=== PATIENT | female | born 1965 | race Caucasian/White ===

== ENCOUNTER 2016-10-18 14:58 | Emergency (ER) | payer BC ==
--- NOTE | 2016-10-18 15:38 | ERPHSYRPT ---
- History of Present Illness Time Seen by Provider: 10/18/16 15:28 Historian: patient Exam Limitations: no limitations Patient Subjective Stated Complaint: pt states she was walking at at employee appreciation day at work and developed a sudden onset of chest pain. pt denies chest pain at this time. Triage Nursing Assessment: pt flushed, warm, dry. lung sounds clear and equal. hx of quad. bypass. Physician History: The patient is a 51-year-old female with a friend complaining of sharp left- sided chest pain that began while she was doing an exercise course at her place of employment this afternoon. The chest pain lasted 10 minutes and subsided after she rested and went inside in the air conditioning. She was not short of breath. She was not nauseated. This chest pain has occurred intermittently for the last several months when she has been exerting herself. She had a CABG 4 vessel 6 years ago. She has not had an MO. Her past medical history is also significant for high cholesterol, diabetes, and hypertension. She is currently feeling fine without chest pain. Timing/Duration: today, other (10 min) Activities at Onset: activity Quality: sharpness Location: substernal Chest Pain Radiation: no radiation Severity of Pain-Max: moderate Severity of Pain-Current: none Modifying Factors: Improves With: rest, aspirin Associated Symptoms: denies symptoms, No nausea, No vomiting Prior Chest Pain/Cardiac Workup: angina, cardiac cath, echocardiography Nitro Today/Relief: no nitro taken today Aspirin Treatment Today: 81 mg x 1 Allergies/Adverse Reactions: No Known Drug Allergies Allergy (Unverified 10/18/16 15:13) Home Medications: Aspirin 81 mg PO DAILY 10/18/16 [History] Atorvastatin Calcium [Lipitor] 10 mg PO DAILY 10/18/16 [History] Losartan Potassium 50 mg [Cozaar 50 MG] 50 mg PO DAILY 10/18/16 [History] Metformin HCl 500 mg [Glucophage 500 MG] 500 mg PO BID 10/18/16 [History] Hx Tetanus, Diphtheria Vaccination/Date Given: Yes (up to date) Hx Influenza Vaccination/Date Given: Yes Hx Pneumococcal Vaccination/Date Given: No Immunizations Up to Date: Yes - Review of Systems Constitutional: No Fever, No Chills Eyes: No Symptoms Ears, Nose, & Throat: No Symptoms Respiratory: No Cough, No Dyspnea Cardiac: Chest Pain, No Edema, No Syncope Abdominal/Gastrointestinal: No Abdominal Pain, No Nausea, No Vomiting, No Diarrhea Genitourinary Symptoms: No Dysuria Musculoskeletal: No Symptoms Skin: No Rash Neurological: No Dizziness, No Focal Weakness, No Sensory Changes Psychological: No Symptoms Endocrine: No Symptoms Hematologic/Lymphatic: No Symptoms Immunological/Allergic: No Symptoms All Other Systems: Reviewed and Negative - Past Medical History Pertinent Past Medical History: Yes Cardiac History: Coronary Artery Disease, High Cholesterol, Hypertension Endocrine Medical History: Diabetes Type II - Past Surgical History Past Surgical History: Yes Cardiac: CABG Gastrointestinal: Appendectomy, Cholecystectomy Female Surgical History: Hysterectomy, Section, Other - Social History Smoking Status: Never smoker Exposure to second hand smoke: No Drug Use: none Patient Lives Alone: Yes - Female History Hx Last Menstrual Period: hyster - Nursing Vital Signs Temperature: 98.4 F Temperature Source: Oral Pulse Rate: 87 Respiratory Rate: 20 Pain Intensity: 0 - Physical Exam General Appearance: no apparent distress, alert Eye Exam: PERRL/EOMI, eyes nml inspection Ears, Nose, Throat Exam: normal ENT inspection, moist mucous membranes Neck Exam: normal inspection, non-tender, supple, full range of motion Respiratory Exam: normal breath sounds, lungs clear, No respiratory distress Cardiovascular Exam: regular rate/rhythm, normal heart sounds Gastrointestinal/Abdomen Exam: soft, No tenderness, No mass Pelvic Exam: not done Rectal Exam: not done Back Exam: normal inspection, No CVA tenderness, No vertebral tenderness Extremity Exam: normal inspection, normal range of motion Neurologic Exam: alert, oriented x 3, cooperative, normal mood/affect, sensation nml, No motor deficits Skin Exam: normal color, warm, dry SpO2 Interpretation: normal SpO2: 95 Oxygen Delivery: Room Air - Course EKG Interpreted by Me: Sinus Rhythm, NORMAL AXIS, NORMAL INTERVALS, NORMAL QRS, NORMAL ST-T - Radiology Exams Chest X-ray Interpretation: Teleradiologist Report, Negative (per Dr Velasquez.) Ordered Tests: Active Orders 24 hr Category Date Time Status Sheep Clipper STAT Care 10/18/16 15:18 Active EKG-ER Only STAT Care 10/18/16 15:17 Active IV Insertion STAT Care 10/18/16 15:30 Active CHEST 2 VIEWS (PA AND LAT) Stat Exams 10/18/16 15:42 Completed CBC W DIFF Stat Lab 10/18/16 15:45 Completed CMP Stat Lab 10/18/16 15:45 Completed TROPONIN Stat Lab 10/18/16 15:45 Completed Lab/Rad Data: Laboratory Result Diagrams 10/18/16 15:45 10/18/16 15:45 Laboratory Results 10/18/16 10/18/16 Range/Units 15:45 15:45 WBC 7.5 (4.0-10.5) K/mm3 RBC 4.74 (4.1-5.4) M/mm3 Hgb 13.6 (12.0-16.0) gm/dl Hct 41.1 (35-47) % MCV 86.7 (78-100) fl MCH 28.7 (26-32) pg MCHC 33.1 (32-36) g/dl RDW 12.7 (11.5-14.0) % Plt Count 274 (150-450) K/mm3 MPV 10.9 H (6-9.5) fl Gran % 63.5 (36.0-66.0) % Lymphocytes % 26.7 (24.0-44.0) % Monocytes % 7.3 (0.0-12.0) % Eosinophils % 2.1 (0.00-5.0) % Basophils % 0.4 (0.0-0.4) % Basophils # 0.03 (0-0.4) Sodium 144 (136-145) mEq/L Potassium 3.5 (3.5-5.1) mEq/L Chloride 108 H (98-107) mEq/L Carbon Dioxide 23.9 (21-32) mEq/L Anion Gap 15.9 H (5-15) MEQ/L BUN 17 (9-20) mg/dL Creatinine 0.75 (0.55-1.30) mg/dl Estimated GFR > 60 ML/MIN Glucose 145 H (70-110) MG/DL Calcium 9.4 (8.5-10.1) mg/dL Total Bilirubin 1.3 H (0.2-1.0) mg/dL AST 18 (15-37) U/L ALT 27 (12-78) U/L Alkaline Phosphatase 97 (46-116) U/L Troponin I < 0.017 (0.000-0.056) ng/ml Serum Total Protein 7.3 (6.4-8.2) gm/dL Albumin 3.9 (3.4-5.0) g/dL - Departure Time of Disposition: 17:27 Departure Disposition: Home Clinical Impression: Angina pectoris Condition: Stable Critical Care Time: No Referrals: Ernestine Pickard TOOL COORDINATOR [Primary Care Provider] - Additional Instructions: You have been having episodes of angina. Today it happened when you were under exertion. You are now chest pain-free. You have been given a prescription for nitroglycerin 0.4 mg to be taken on your tongue every 5 minutes for up to 3 times as needed for chest pain. Please call your family preservation caseworker tomorrow and set up an appointment in the near future. Prescriptions: Nitroglycerin [Nitrostat] 0.4 mg SL Q5MIN PRN MR X 3 PRN #25 tab.subl PRN Reason: Pain
[2016-10-18 15:53] LABS: BASOPHIL % 0.4 % (0.0-0.4); Eosinophil % 2.1 % (0.00-5.0); Granulocytes % 63.5 % (36.0-66.0); Lymphocytes % 26.7 % (24.0-44.0); Mean Cell Volume 86.7 fl (78-100); Mean Corpuscular Hemoglobin 28.7 pg (26-32); Mean Platelet Volume 10.9 fl (6-9.5); Monocytes % 7.3 % (0.0-12.0); Platelet Count 274 K/mm3 (150-450); Red Blood Count 4.74 M/mm3 (4.1-5.4); Red Cell Distribution Width 12.7 % (11.5-14.0); White Blood Count 7.5 K/mm3 (4.0-10.5)
--- NOTE | 2016-10-18 16:24 | XRAY ---
Indication: Chest pain. Comparison: October 14, 2010. PA/lateral chest demonstrates interval CABG surgery. Heart is not enlarged. Vascularity normal. Lungs inflated and clear. Bony thorax intact. Impression: Nonacute chest with previous CABG surgery.
[2016-10-18 16:29] LABS: ALBUMIN 3.9 g/dL (3.4-5.0); ALKALINE PHOSPHATASE 97 U/L (46-116); ANION GAP 15.9 MEQ/L (5-15); BILIRUBIN,TOTAL 1.3 mg/dL (0.2-1.0); BLOOD UREA NITROGEN 17 mg/dL (9-20); CHLORIDE 108 mEq/L (98-107); Carbon Dioxide 23.9 mEq/L (21-32); Glucose 145 MG/DL (70-110); Potassium 3.5 mEq/L (3.5-5.1); SGOT/AST 18 U/L (15-37); SGPT/ALT 27 U/L (12-78); SODIUM 144 mEq/L (136-145); TROPONIN < 0.017 ng/ml (0.000-0.056); Total Protein 7.3 gm/dL (6.4-8.2)
[2016-10-18 17:52] VITALS: BP 117/60; PULSE 67; O2SAT 98
== END 2016-10-18 17:51 | disposition home or self-care (01) ==
LOC: ED 14:58
DX: I20.9 Angina pectoris, unspecified (principal); R07.89 Other chest pain; Z95.1 Presence of aortocoronary bypass graft; I10 Essential (primary) hypertension; E11.9 Type 2 diabetes mellitus without complications; I25.10 Atherosclerotic heart disease of native coronary artery without angina pectoris; E78.00 Pure hypercholesterolemia, unspecified; Z79.84 Long term (current) use of oral hypoglycemic drugs; Z79.899 Other long term (current) drug therapy
CPT/HCPCS: 36000; 36415; 71020; 80053; 84484; 85025; 93005; 93041; 99283; 99284

== ENCOUNTER 2017-05-26 06:20 | Emergency (ER) | payer BC ==
[2017-05-26 06:40] VITALS: BP 125/74; PULSE 82; O2SAT 97
--- NOTE | 2017-05-26 06:42 | ERPHSYRPT ---
- History of Present Illness Time Seen by Provider: 05/26/17 06:42 Source: patient Exam Limitations: no limitations Patient Subjective Stated Complaint: headache since yesterday.. productive cough. denies fever. denies N/V/D. denies swelling in legs. states heaad hurts with coughing. never has had migraines. sorethroat. Triage Nursing Assessment: headache since yesterday.. productive cough. denies fever. denies N/V/D. lungs clear bilaterally. denies swelling in legs. states heaad hurts with coughing. never has had migraines. sorethroat. Physician History: headache since yesterday.. productive cough. denies fever. denies N/V/D. denies swelling in legs. states heaad hurts with coughing. never has had migraines. sorethroat. Timing/Duration: yesterday Severity: moderate Associated Symptoms: cough, fever, headaches Allergies/Adverse Reactions: No Known Drug Allergies Allergy (Unverified 10/18/16 15:13) Home Medications: Aspirin 81 mg PO DAILY 10/18/16 [History] Atorvastatin Calcium [Lipitor] 10 mg PO DAILY 10/18/16 [History] Losartan Potassium 50 mg [Cozaar 50 MG] 50 mg PO DAILY 10/18/16 [History] Metformin HCl 500 mg [Glucophage 500 MG] 500 mg PO BID 10/18/16 [History] Hx Tetanus, Diphtheria Vaccination/Date Given: Yes (up to date) Hx Influenza Vaccination/Date Given: Yes (april) Hx Pneumococcal Vaccination/Date Given: No - Review of Systems Constitutional: Fever, Chills Eyes: No Symptoms Ears, Nose, & Throat: Throat Pain Respiratory: Cough, No Dyspnea Cardiac: No Chest Pain, No Edema, No Syncope Abdominal/Gastrointestinal: No Abdominal Pain, No Nausea, No Vomiting, No Diarrhea Genitourinary Symptoms: No Dysuria Musculoskeletal: No Back Pain, No Neck Pain Skin: No Rash Neurological: No Dizziness, No Focal Weakness, No Sensory Changes Psychological: No Symptoms Endocrine: No Symptoms All Other Systems: Reviewed and Negative - Past Medical History Pertinent Past Medical History: Yes Cardiac History: Coronary Artery Disease, High Cholesterol, Hypertension Endocrine Medical History: Diabetes Type II - Past Surgical History Past Surgical History: Yes Cardiac: CABG Gastrointestinal: Appendectomy, Cholecystectomy Female Surgical History: Hysterectomy, Section, Other - Social History Smoking Status: Never smoker Exposure to second hand smoke: No Drug Use: none Patient Lives Alone: No - Female History Hx Now: No - Nursing Vital Signs Nursing Vital Signs: Initial Vital Signs Temperature 98.6 F 05/26/17 06:26 Pulse Rate 82 05/26/17 06:26 Respiratory Rate 20 05/26/17 06:26 Blood Pressure 125/74 05/26/17 06:26 O2 Sat by Pulse Oximetry 97 05/26/17 06:26 Pain Scale Pain Intensity 7 - Physical Exam General Appearance: mild distress Eye Exam: PERRL/EOMI Ears, Nose, Throat Exam: normal ENT inspection Neck Exam: normal inspection Respiratory Exam: rhonchi Cardiovascular Exam: regular rate/rhythm Gastrointestinal/Abdomen Exam: soft Neurologic Exam: alert, oriented x 3 SpO2: 97 Oxygen Delivery: Room Air - Course Nursing assessment & vital signs reviewed: Yes Ordered Tests: Medication Summary Discontinued Medications Generic Name Dose Route Start Last Admin Trade Name Brenda PRN Reason Stop Dose Admin Ketorolac Tromethamine 60 mg 05/26/17 06:45 05/26/17 06:48 Toradol 30 Mg Injection IM 05/26/17 06:46 60 mg STAT ONE Administration Ketorolac Tromethamine Confirm 05/26/17 06:47 Toradol 30 Mg Injection Administered 05/26/17 06:48 Dose 60 mg .ROUTE .STK-MED ONE - Progress Progress: unchanged Counseled pt/family regarding: diagnosis, need for follow-up - Departure Time of Disposition: 06:50 Departure Disposition: Home Clinical Impression: Influenza A Pharyngitis Qualifiers: Pharyngitis/tonsillitis etiology: other specified organisms Qualified Code(s): J02.8 - Acute pharyngitis due to other specified organisms Condition: Stable Critical Care Time: No Referrals: SETPHAN MAYO [Primary Care Provider] - Instructions: Pharyngitis/Tonsillopharyngitis -- Adult, Headache Additional Instructions: UPPER RESPIRATORY INFECTIONS 1. The signs and symptoms of a cold may last up to 10 days. These illnesses are due to viruses which are not treatable with antibiotics. 2. The following suggestions can aid in recovery and to minimize symptoms: A. Increase fluid intake. B. Acetaminophen or Ibuprofen as directed. C. Avoid smoking environments as this will increase the risk of developing pneumonia. D. For children, may use a cool mist vaporizer in the child's room. 3. Contact your Family Physician if you note: A. Persisten fever >103 for more than 3 days B. Breathing difficulty C. Productive cough of yellow/green sputum D. Illness greater than 7 days E. Persistent vomiting F. Stiff neck VIRAL ILLNESS 1. Rest at home and take any prescribed medications as directed or until gone. 2. Offer plenty of fluids as tolerated. 3. Acetaminophen or Ibuprofen as directed. 4. Be sure to follow up with your family physician or return to the emergency department if symptoms change or become worse. Forms: Work/School Release Form Prescriptions: Amoxicillin 500 mg PO TID #30 tablet Guaifenesin/Codeine Phos [Cheratussin AC Syrup] 5 ml PO Q6H #150 liquid
[2017-05-26] MEDS ORDERED: TORAdol 30 mg Injection IM ONE (06:45)
[2017-05-26] MEDS ORDERED: TORAdol 30 mg Injection ONE (06:47)
== END 2017-05-26 07:15 | disposition home or self-care (01) ==
LOC: ED 06:20
DX: J02.8 Acute pharyngitis due to other specified organisms (principal); J11.1 Influenza due to unidentified influenza virus with other respiratory manifestations; R51 Headache
CPT/HCPCS: 96372; 99284; J1885

== ENCOUNTER 2018-03-01 17:59 | Emergency (ER) | payer BC ==
--- NOTE | 2018-03-01 18:02 | ERPHSYRPT ---
- History of Present Illness Time Seen by Provider: 03/01/18 18:02 Historian: patient, EMS Exam Limitations: no limitations Physician History: 52 y/o white female with h/o htn, and cadz with 4 vessel cabg in past, presents with sharp, short lived central substernal chest pain. pt was bending over at work. nearly resolved at work. 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 ems brought pt into ED. pts cp now only mild and only present with deep inspiration. pt had h/o panic attacks. pt denies any current new stressors. pt denies soa, denies abd pain. ems gave pt asa travel pta. no ntg given to or taken by patient. Timing/Duration: today Activities at Onset: activity Quality: sharpness Location: substernal Chest Pain Radiation: no radiation Severity of Pain-Max: mild Severity of Pain-Current: none Associated Symptoms: denies symptoms, No nausea, No vomiting, No palpitations, No abdominal pain, No shortness of breath, No cough, No hurts to breathe, No diaphoresis, No chills, No fatigue, No weakness, No syncope, No headache, No dizziness Prior Chest Pain/Cardiac Workup: cardiac cath, echocardiography, heart attack Nitro Today/Relief: no nitro taken today Aspirin Treatment Today: 81 mg x 4, provided by EMS Allergies/Adverse Reactions: No Known Drug Allergies Allergy (Verified 03/01/18 18:21) Home Medications: Aspirin 81 mg PO DAILY 10/18/16 [History] Losartan Potassium 50 mg [Cozaar 50 MG] 50 mg PO DAILY 10/18/16 [History] Metformin HCl 500 mg [Glucophage 500 MG] 1,000 mg PO BID 10/18/16 [History ] Rosuvastatin Calcium 5 mg PO DAILY 03/01/18 [History] Hx Tetanus, Diphtheria Vaccination/Date Given: Yes (up to ) Hx Influenza Vaccination/Date Given: Yes (april) Hx Pneumococcal Vaccination/Date Given: No - Review of Systems Constitutional: No Symptoms, No Fever, No Chills Eyes: No Symptoms, No Discharge, No Eye Pain Ears, Nose, & Throat: No Symptoms, No Ear Pain, No Ear Discharge Respiratory: No Symptoms, No Cough, No Dyspnea, No Stridor, No Wheezing Cardiac: Chest Pain (mild and resolved upon arrival into ED), No Palpitations, No Syncope Abdominal/Gastrointestinal: No Symptoms, No Abdominal Pain, No Nausea, No Vomiting, No Diarrhea Genitourinary Symptoms: No Symptoms, No Dysuria, No Frequency, No Hematuria Musculoskeletal: No Symptoms, No Back Pain, No Neck Pain, No Fall, No Injury Skin: No Symptoms Neurological: No Symptoms Psychological: No Symptoms, No Alcohol Abuse, No Drug Abuse, No Anxiety Endocrine: No Symptoms, No Polyuria, No Polydipsia Hematologic/Lymphatic: No Symptoms Immunological/Allergic: No Symptoms All Other Systems: Reviewed and Negative - Past Medical History Pertinent Past Medical History: Yes Neurological History: No Pertinent History ENT History: No Pertinent History Cardiac History: No Pertinent History, Coronary Artery Disease, High Cholesterol , Hypertension Respiratory History: No Pertinent History Endocrine Medical History: Diabetes Type II Musculoskeletal History: No Pertinent History GI Medical History: No Pertinent History History: No Pertinent History Psycho-Social History: No Pertinent History Female Reproductive Disorders: No Pertinent History - Past Surgical History Past Surgical History: Yes Cardiac: CABG Gastrointestinal: Appendectomy, Cholecystectomy Female Surgical History: Hysterectomy, Section, Other - Social History Smoking Status: Never smoker Exposure to second hand smoke: No Drug Use: none Patient Lives Alone: No - Nursing Vital Signs Nursing Vital Signs: Initial Vital Signs Temperature 98.5 F 03/01/18 18:00 Pulse Rate 70 03/01/18 18:00 Blood Pressure 104/64 03/01/18 18:00 O2 Sat by Pulse Oximetry 96 03/01/18 18:00 Pain Scale Pain Intensity 0 - Physical Exam General Appearance: no apparent distress, alert, anxiety Eye Exam: PERRL/EOMI, eyes nml inspection Ears, Nose, Throat Exam: normal ENT inspection, TMs normal Neck Exam: normal inspection, non-tender, supple, full range of motion Respiratory Exam: normal breath sounds, chest tenderness, lungs clear, No respiratory distress, No airway intact, No accessory muscle use, No rhonchi, No wheezing, No stridor Cardiovascular Exam: regular rate/rhythm, normal heart sounds, normal peripheral pulses Gastrointestinal/Abdomen Exam: soft, normal bowel sounds, No tenderness, No guarding, No rebound Pelvic Exam: not done Rectal Exam: not done Back Exam: normal inspection, normal range of motion, No CVA tenderness, No vertebral tenderness Extremity Exam: normal inspection, normal range of motion, pelvis stable Neurologic Exam: alert, oriented x 3, cooperative, sports equipment racker II-XII nml as tested Skin Exam: normal color, warm, dry Lymphatic Exam: No adenopathy SpO2 Interpretation: normal Oxygen Delivery: Room Air - Course Nursing assessment & vital signs reviewed: Yes EKG Interpreted by Me: RATE (68), NORMAL AXIS, NORMAL INTERVALS, NORMAL QRS (no changes compared to EKG date 10/18/16), Non-specific ST Changes Ordered Tests: Active Orders 24 hr Category Date Time Status Automobile Repair Service Estimator STAT Care 03/01/18 18:12 Active EKG-ER Only STAT Care 03/01/18 18:10 Active IV Insertion STAT Care 03/01/18 18:10 Active CHEST 1 VIEW (PORTABLE) Stat Exams 03/01/18 18:11 Taken CBC W DIFF Stat Lab 03/01/18 18:27 Completed CMP Stat Lab 03/01/18 18:27 Completed NT PRO BNP Stat Lab 03/01/18 18:27 Completed PROTIME WITH INR Stat Lab 03/01/18 18:27 Completed TROPONIN Q3H Lab 03/01/18 18:27 Completed TROPONIN Q3H Lab 03/01/18 21:15 Ordered TROPONIN Q3H Lab 03/02/18 00:15 Ordered TROPONIN Q3H Lab 03/02/18 03:15 Ordered TROPONIN Q3H Lab 03/02/18 06:15 Ordered Lab/Rad Data: Laboratory Result Diagrams 03/01/18 18:27 03/01/18 18:27 Laboratory Results 03/01/18 03/01/18 03/01/18 Range/Units 18:27 18:27 18:27 WBC (4.0-10.5) K/mm3 RBC (4.1-5.4) M/mm3 Hgb (12.0-16.0) gm/dl Hct (35-47) % MCV (78-100) fl MCH (26-32) pg MCHC (32-36) g/dl RDW (11.5-14.0) % Plt Count (150-450) K/mm3 MPV (6-9.5) fl Gran % (36.0-66.0) % Eos # (Auto) (0-0.5) Absolute Lymphs (auto) (1.0-4.6) Absolute Monos (auto) (0.0-1.3) Lymphocytes % (24.0-44.0) % Monocytes % (0.0-12.0) % Eosinophils % (0.00-5.0) % Basophils % (0.0-0.4) % Absolute Granulocytes (1.4-6.9) Basophils # (0-0.4) PT 11.5 (9.95-12.35) SECONDS INR 0.99 (0.8-3.0) Sodium 141 (137-145) mmol/L Potassium 3.5 (3.5-5.1) mmol/L Chloride 109 H (98-107) mmol/L Carbon Dioxide 23 (22-30) mmol/L Anion Gap 13.0 (5-15) MEQ/L BUN 14 (7-17) mg/dL Creatinine 0.52 (0.52-1.04) mg/dL Estimated GFR > 60.0 ML/MIN Glucose 143 H (74-106) mg/dL Calcium 8.8 (8.4-10.2) mg/dL Total Bilirubin 1.20 (0.2-1.3) mg/dL AST 14 (14-36) U/L ALT 21 (0-35) U/L Alkaline Phosphatase 77 (38-126) U/L Troponin I < 0.012 (0.000-0.034) ng/mL NT-Pro-B Natriuret Pep 96.7 (0-900) pg/mL Serum Total Protein 6.1 L (6.3-8.2) g/dL Albumin 3.8 (3.5-5.0) g/dL 03/01/18 Range/Units 18:27 WBC 6.6 (4.0-10.5) K/mm3 RBC 4.37 (4.1-5.4) M/mm3 Hgb 13.0 (12.0-16.0) gm/dl Hct 38.6 (35-47) % MCV 88.3 (78-100) fl MCH 29.7 (26-32) pg MCHC 33.7 (32-36) g/dl RDW 12.8 (11.5-14.0) % Plt Count 252 (150-450) K/mm3 MPV 10.5 H (6-9.5) fl Gran % 63.1 (36.0-66.0) % Eos # (Auto) 0.15 (0-0.5) Absolute Lymphs (auto) 1.84 (1.0-4.6) Absolute Monos (auto) 0.44 (0.0-1.3) Lymphocytes % 27.8 (24.0-44.0) % Monocytes % 6.6 (0.0-12.0) % Eosinophils % 2.3 (0.00-5.0) % Basophils % 0.2 (0.0-0.4) % Absolute Granulocytes 4.19 (1.4-6.9) Basophils # 0.01 (0-0.4) PT (9.95-12.35) SECONDS INR (0.8-3.0) Sodium (137-145) mmol/L Potassium (3.5-5.1) mmol/L Chloride (98-107) mmol/L Carbon Dioxide (22-30) mmol/L Anion Gap (5-15) MEQ/L BUN (7-17) mg/dL Creatinine (0.52-1.04) mg/dL Estimated GFR ML/MIN Glucose (74-106) mg/dL Calcium (8.4-10.2) mg/dL Total Bilirubin (0.2-1.3) mg/dL AST (14-36) U/L ALT (0-35) U/L Alkaline Phosphatase (38-126) U/L Troponin I (0.000-0.034) ng/mL NT-Pro-B Natriuret Pep (0-900) pg/mL Serum Total Protein (6.3-8.2) g/dL Albumin (3.5-5.0) g/dL - Progress Progress: improved, re-examined Air Movement: good Progress Note: 03/01/18 19:40 pt cp resolved. cxr- mild cardiomegaly; no acute process Blood Culture(s) Obtained: No Antibiotics given: No Counseled pt/family regarding: lab results, diagnosis, need for follow-up, rad results - Departure Time of Disposition: 19:41 Departure Disposition: Home Clinical Impression: Chest pain Condition: Stable Critical Care Time: No Referrals: STEPHAN MAYO [Primary Care Provider] - Additional Instructions: take your medications as prescribed. follow up with primary doctor and energy control officer for further management
[2018-03-01 18:34] LABS: BASOPHIL % 0.2 % (0.0-0.4); Basophil (Absolute #) 0.01 (0-0.4); Eosinophil % 2.3 % (0.00-5.0); Eosinophil (Absolute #) 0.15 (0-0.5); Granulocyte Absolute (ANC) 4.19 (1.4-6.9); Granulocytes % 63.1 % (36.0-66.0); Hematocrit 38.6 % (35-47); Lymphocyte (Absolute #) 1.84 (1.0-4.6); Lymphocytes % 27.8 % (24.0-44.0); Mean Cell Volume 88.3 fl (78-100); Mean Corpuscular Hemoglobin 29.7 pg (26-32); Mean Corpuscular Hgb Concent. 33.7 g/dl (32-36); Mean Platelet Volume 10.5 fl (6-9.5); Monocyte (Absolute #) 0.44 (0.0-1.3); Monocytes % 6.6 % (0.0-12.0); Platelet Count 252 K/mm3 (150-450); Red Blood Count 4.37 M/mm3 (4.1-5.4); Red Cell Distribution Width 12.8 % (11.5-14.0); White Blood Count 6.6 K/mm3 (4.0-10.5)
[2018-03-01 18:46] LABS: INR 0.99 (0.8-3.0)
[2018-03-01 18:58] LABS: ALBUMIN 3.8 g/dL (3.5-5.0); ALKALINE PHOSPHATASE 77 U/L (38-126); BLOOD UREA NITROGEN 14 mg/dL (7-17); CHLORIDE 109 mmol/L (98-107); Calcium 8.8 mg/dL (8.4-10.2); Carbon Dioxide 23 mmol/L (22-30); Creatinine 1 0.52 mg/dL (0.52-1.04); Glucose 143 mg/dL (74-106); NT PRO BNP 96.7 pg/mL (0-900); Potassium 3.5 mmol/L (3.5-5.1); SGOT/AST 14 U/L (14-36); SGPT/ALT 21 U/L (0-35); SODIUM 141 mmol/L (137-145); Total Protein 6.1 g/dL (6.3-8.2)
[2018-03-01 19:45] VITALS: BP 117/66; PULSE 69; O2SAT 97
--- NOTE | 2018-03-01 22:15 | XRAY ---
Indication: Chest pain. Comparison: October 18, 2016. Portable apical lordotic chest again demonstrates CABG surgery. Heart is not enlarged. Lungs clear. Bony thorax intact again with minimal degenerative changes. Impression: Stable nonacute chest with chronic features.
== END 2018-03-01 19:54 | disposition home or self-care (01) ==
LOC: ED 17:59
DX: R07.9 Chest pain, unspecified (principal); R42 Dizziness and giddiness; E11.9 Type 2 diabetes mellitus without complications; Z95.1 Presence of aortocoronary bypass graft; Z86.79 Personal history of other diseases of the circulatory system; Z79.82 Long term (current) use of aspirin; Z79.899 Other long term (current) drug therapy; Z79.84 Long term (current) use of oral hypoglycemic drugs
CPT/HCPCS: 36000; 36415; 71045; 80053; 83880; 84484; 85025; 85610; 93005; 93041; 99284

== ENCOUNTER 2020-12-13 21:05 | Emergency (ER) | payer BC ==
[2020-12-13 21:27] VITALS: O2SAT 97
[2020-12-13] MEDS ORDERED: SUBLIMAZE 100 MCG/2 ML IV ONE (21:27)
[2020-12-13] MEDS ORDERED: Sodium Chloride 0.9% 1000 ML 1,000 ML IV SCH (21:30)
[2020-12-13] MEDS ORDERED: SUBLIMAZE 100 MCG/2 ML ONE (21:44)
[2020-12-13] MEDS ORDERED: Sodium Chloride 0.9% 1000 ML 1,000 ML ONE (21:45)
[2020-12-13 21:54] LABS: Absolute Neutrophil Ct (ANC) 3.75 (1.4-6.9); BASOPHIL % 0.4 % (0.0-0.4); Basophil (Absolute #) 0.03 (0-0.4); Eosinophil % 2.4 % (0.00-5.0); Eosinophil (Absolute #) 0.17 (0-0.5); Hematocrit 47.2 % (35-47); Hemoglobin 15.6 gm/dl (12.0-16.0); Lymphocyte (Absolute #) 2.67 (1.0-4.6); Lymphocytes % 37.1 % (24.0-44.0); Mean Cell Volume 84.9 fl (78-100); Mean Corpuscular Hemoglobin 28.1 pg (26-32); Mean Corpuscular Hgb Concent. 33.1 g/dl (32-36); Monocyte (Absolute #) 0.57 (0.0-1.3); Monocytes % 7.9 % (0.0-12.0); Neutrophil % 52.2 % (36.0-66.0); Platelet Count 270 K/mm3 (150-450); Red Blood Count 5.56 M/mm3 (4.1-5.4); Red Cell Distribution Width 12.8 % (11.5-14.0); White Blood Count 7.2 K/mm3 (4.0-10.5)
[2020-12-13 22:05] LABS: ALBUMIN 4.7 g/dL (3.5-5.0); ALKALINE PHOSPHATASE 114 U/L (38-126); AMYLASE 50 U/L (30-110); ANION GAP 15.3 MEQ/L (5-15); BLOOD UREA NITROGEN 12 mg/dL (7-17); CHLORIDE 106 mmol/L (98-107); Calcium 9.5 mg/dL (8.4-10.2); Carbon Dioxide 22 mmol/L (22-30); Creatinine 1 0.56 mg/dL (0.52-1.04); EST GLOMERULAR FILTRATION RATE > 60.0 ML/MIN; Glucose 165 mg/dL (74-106); LIPASE 62 U/L (23-300); MAGNESIUM 1.8 mg/dL (1.6-2.3); NT PRO BNP 36.1 pg/mL (0-900); Potassium 3.7 mmol/L (3.5-5.1); SGOT/AST 23 U/L (14-36); SGPT/ALT 29 U/L (0-35); SODIUM 140 mmol/L (137-145); Total Protein 7.8 g/dL (6.3-8.2)
--- NOTE | 2020-12-13 22:17 | ERPHSYRPT ---
- History of Present Illness Time Seen by Provider: 12/13/20 21:35 Historian: patient Exam Limitations: no limitations Patient Subjective Stated Complaint: Pt c/o pain to back and is coming around to the front of upper abd area Triage Nursing Assessment: pt c/o pain to mid back which is coming around to the front of upper abd area, it started this morning and has been constant throughout the day. Abd soft with active bs x4 quad, nontender on palpation. 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 She presents with several hours of pain in the interscapular area coming around to the front. The patient had Covid and states that it is hard to breathe at times she also reports dark urine she denies any fever chills or sweats. Timing/Duration: today Activities at Onset: none Quality: cramping, throbbing Location: back Chest Pain Radiation: abdomen Severity of Pain-Max: moderate Severity of Pain-Current: moderate Modifying Factors: Improves With: nothing Associated Symptoms: denies symptoms Prior Chest Pain/Cardiac Workup: cardiac cath (Had a quad bypass 10 years ago) Nitro Today/Relief: no nitro taken today Aspirin Treatment Today: no aspirin today Allergies/Adverse Reactions: lisinopril Adverse Reaction (Intermediate, Verified 12/13/20 21:36) Cough Home Medications: Aspirin 81 mg PO DAILY 10/18/16 [History] Losartan Potassium 50 mg [Cozaar 50 MG] 50 mg PO DAILY 10/18/16 [History] Metformin HCl 500 mg [Glucophage 500 MG] 1,000 mg PO BID 10/18/16 [History ] Rosuvastatin Calcium 5 mg PO DAILY 03/01/18 [History] Hx Tetanus, Diphtheria Vaccination/Date Given: Yes Hx Influenza Vaccination/Date Given: No Hx Pneumococcal Vaccination/Date Given: No Immunizations Up to Date: Yes Travel Risk - International Travel Have you traveled outside of the country in past 3 weeks: No - Coronavirus Screening Are you exhibiting any of the following symptoms?: Yes Symptoms: Shortness of Breath Close contact with a COVID-19 positive Pt in past 14-21 Days: No - Vaccine Status Have you recieved a Covid-19 vaccination: No - Review of Systems Constitutional: No Fever, No Chills Eyes: No Symptoms Ears, Nose, & Throat: No Symptoms Respiratory: No Cough, No Dyspnea Cardiac: Chest Pain, No Edema, No Syncope Abdominal/Gastrointestinal: Abdominal Pain, No Nausea, No Vomiting, No Diarrhea Genitourinary Symptoms: No Dysuria Musculoskeletal: No Back Pain, No Neck Pain Skin: No Rash Neurological: No Dizziness, No Focal Weakness, No Sensory Changes Psychological: No Symptoms Endocrine: No Symptoms All Other Systems: Reviewed and Negative - Past Medical History Pertinent Past Medical History: Yes Neurological History: No Pertinent History ENT History: No Pertinent History Cardiac History: Coronary Artery Disease, High Cholesterol, Hypertension Respiratory History: No Pertinent History Endocrine Medical History: Diabetes Type II Musculoskeletal History: No Pertinent History GI Medical History: Gallbladder Disease History: Other Psycho-Social History: No Pertinent History Female Reproductive Disorders: No Pertinent History Other Medical History: kidney stone - Past Surgical History Past Surgical History: Yes Neuro Surgical History: No Pertinent History Cardiac: CABG, Cardiac Catheterization Respiratory: No Pertinent History Gastrointestinal: Appendectomy, Cholecystectomy Genitourinary: No Pertinent History Musculoskeletal: No Pertinent History Female Surgical History: Hysterectomy, Section, Other Other Surgical History: laprascopic for cysts on ovaries - Social History Smoking Status: Never smoker Exposure to second hand smoke: No Drug Use: none Patient Lives Alone: Yes - Nursing Vital Signs Nursing Vital Signs: Initial Vital Signs Temperature 97.9 F 12/13/20 21:25 Pulse Rate 85 12/13/20 21:25 Respiratory Rate 20 12/13/20 21:25 Blood Pressure 162/82 12/13/20 21:25 O2 Sat by Pulse Oximetry 97 12/13/20 21:25 Pain Scale Pain Intensity [Back] 7 Pain Intensity 7 - Physical Exam General Appearance: mild distress, alert Eye Exam: PERRL/EOMI, eyes nml inspection Ears, Nose, Throat Exam: normal ENT inspection, moist mucous membranes Neck Exam: normal inspection, non-tender, supple, full range of motion Respiratory Exam: normal breath sounds, lungs clear, No respiratory distress Cardiovascular Exam: regular rate/rhythm, normal heart sounds Gastrointestinal/Abdomen Exam: soft, No tenderness, No mass Back Exam: normal inspection, No CVA tenderness, No vertebral tenderness Extremity Exam: normal inspection, normal range of motion Neurologic Exam: alert, oriented x 3, cooperative, normal mood/affect, sensation nml, No motor deficits Skin Exam: normal color, warm, dry SpO2 Interpretation: normal SpO2: 97 O2 Delivery: Room Air - Course Nursing assessment & vital signs reviewed: Yes EKG Interpreted by Me: RATE (79), Sinus Rhythm, NORMAL AXIS, NORMAL INTERVALS, Other (Low voltage in precordial leads) - Radiology Exams Chest X-ray Interpretation: Interpreted by me, Other (No acute processes identfied or appreciated) Ordered Tests: Active Orders 24 hr Category Date Time Status Game Master STAT Care 12/13/20 21:28 Active EKG-ER Only STAT Care 12/13/20 21:27 Active IV Insertion STAT Care 12/13/20 21:27 Active CHEST 1 VIEW (PORTABLE) Stat Exams 12/13/20 21:28 Taken AMYLASE Stat Lab 12/13/20 21:40 Completed CBC W DIFF Stat Lab 12/13/20 21:40 Completed CMP Stat Lab 12/13/20 21:40 Completed LIPASE Stat Lab 12/13/20 21:40 Completed Lactic Acid Stat Lab 12/13/20 21:27 Completed MAGNESIUM Stat Lab 12/13/20 21:40 Completed NT PRO BNP Stat Lab 12/13/20 21:40 Completed TROPONIN Q3H Lab 12/13/20 21:40 Completed TROPONIN Q3H Lab 12/14/20 00:30 Ordered TROPONIN Q3H Lab 12/14/20 03:30 Ordered TROPONIN Q3H Lab 12/14/20 06:30 Ordered TROPONIN Q3H Lab 12/14/20 09:30 Ordered UA W/RFX UR CULTURE Stat Lab 12/13/20 21:38 Ordered Medication Summary Generic Name Dose Route Start Last Admin Trade Name Freq PRN Reason Stop Dose Admin Sodium Chloride 1,000 mls @ 100 mls/hr 12/13/20 21:30 12/13/20 21:51 Sodium Chloride 0.9% 1000 Ml IV 01/12/21 21:29 100 mls/hr .Q10H DANIEL Administration Discontinued Medications Generic Name Dose Route Start Last Admin Trade Name Freq PRN Reason Stop Dose Admin Fentanyl Citrate 50 mcg 12/13/20 21:27 Sublimaze 100 Mcg/2 Ml IV 12/13/20 21:28 STAT ONE Fentanyl Citrate Confirm 12/13/20 21:44 Sublimaze 100 Mcg/2 Ml Administered 12/13/20 21:45 Dose 100 mcg .ROUTE .[facility] Lab/Rad Data: Laboratory Result Diagrams 12/13/20 21:40 12/13/20 21:40 Laboratory Results 12/13/20 12/13/20 12/13/20 Range/Units 21:40 21:40 21:40 WBC 7.2 (4.0-10.5) K/mm3 RBC 5.56 H (4.1-5.4) M/mm3 Hgb 15.6 (12.0-16.0) gm/dl Hct 47.2 H (35-47) % MCV 84.9 (78-100) fl MCH 28.1 (26-32) pg MCHC 33.1 (32-36) g/dl RDW 12.8 (11.5-14.0) % Plt Count 270 (150-450) K/mm3 MPV 11.0 (7.5-11.0) fl Gran % 52.2 (36.0-66.0) % Eos # (Auto) 0.17 (0-0.5) Absolute Lymphs (auto) 2.67 (1.0-4.6) Absolute Monos (auto) 0.57 (0.0-1.3) Lymphocytes % 37.1 (24.0-44.0) % Monocytes % 7.9 (0.0-12.0) % Eosinophils % 2.4 (0.00-5.0) % Basophils % 0.4 (0.0-0.4) % Absolute Granulocytes 3.75 (1.4-6.9) Basophils # 0.03 (0-0.4) Sodium 140 (137-145) mmol/L Potassium 3.7 (3.5-5.1) mmol/L Chloride 106 (98-107) mmol/L Carbon Dioxide 22 (22-30) mmol/L Anion Gap 15.3 H (5-15) MEQ/L BUN 12 (7-17) mg/dL Creatinine 0.56 (0.52-1.04) mg/dL Estimated GFR > 60.0 ML/MIN Glucose 165 H (74-106) mg/dL Lactic Acid (0.4-2.0) Calcium 9.5 (8.4-10.2) mg/dL Magnesium 1.8 (1.6-2.3) mg/dL Total Bilirubin 1.00 (0.2-1.3) mg/dL AST 23 (14-36) U/L ALT 29 (0-35) U/L Alkaline Phosphatase 114 (38-126) U/L Troponin I < 0.012 (0.000-0.034) ng/mL NT-Pro-B Natriuret Pep 36.1 (0-900) pg/mL Serum Total Protein 7.8 (6.3-8.2) g/dL Albumin 4.7 (3.5-5.0) g/dL Amylase 50 (30-110) U/L Lipase 62 (23-300) U/L 12/13/20 Range/Units 21:27 WBC (4.0-10.5) K/mm3 RBC (4.1-5.4) M/mm3 Hgb (12.0-16.0) gm/dl Hct (35-47) % MCV (78-100) fl MCH (26-32) pg MCHC (32-36) g/dl RDW (11.5-14.0) % Plt Count (150-450) K/mm3 MPV (7.5-11.0) fl Gran % (36.0-66.0) % Eos # (Auto) (0-0.5) Absolute Lymphs (auto) (1.0-4.6) Absolute Monos (auto) (0.0-1.3) Lymphocytes % (24.0-44.0) % Monocytes % (0.0-12.0) % Eosinophils % (0.00-5.0) % Basophils % (0.0-0.4) % Absolute Granulocytes (1.4-6.9) Basophils # (0-0.4) Sodium (137-145) mmol/L Potassium (3.5-5.1) mmol/L Chloride (98-107) mmol/L Carbon Dioxide (22-30) mmol/L Anion Gap (5-15) MEQ/L BUN (7-17) mg/dL Creatinine (0.52-1.04) mg/dL Estimated GFR ML/MIN Glucose (74-106) mg/dL Lactic Acid 1.2 (0.4-2.0) Calcium (8.4-10.2) mg/dL Magnesium (1.6-2.3) mg/dL Total Bilirubin (0.2-1.3) mg/dL AST (14-36) U/L ALT (0-35) U/L Alkaline Phosphatase (38-126) U/L Troponin I (0.000-0.034) ng/mL NT-Pro-B Natriuret Pep (0-900) pg/mL Serum Total Protein (6.3-8.2) g/dL Albumin (3.5-5.0) g/dL Amylase (30-110) U/L Lipase (23-300) U/L - Progress Progress: improved Air Movement: good Blood Culture(s) Obtained: No Antibiotics given: No - Departure Departure Disposition: Home Clinical Impression: Gastritis Condition: Stable Critical Care Time: No Referrals: STEPHAN MAYO [Primary Care Provider] - Instructions: Gastritis (DC) Prescriptions: PANTOPRAZOLE 40 mg Tablet [Protonix 40MG Tablet] 40 mg PO QAM 30 Days #30 tab
[2020-12-13] MEDS ORDERED: Protonix 40MG Tablet PO ONE (23:08)
[2020-12-13 23:11] LABS: Appearance TURBID (CLEAR); Bacteria MODERATE /HPF (NEGATIVE); Bilirubin NEGATIVE (NEGATIVE); Blood NEGATIVE Ery/ul (0-5); Glucose 150 mg/dL (NEGATIVE); Ketones NEGATIVE (NEGATIVE); Leukocyte Esterase TRACE (NEGATIVE); Mucus MODERATE /HPF (NEGATIVE); Nitrite NEGATIVE (NEGATIVE); Protein,Urine Dip 100 (Negative); Specific Gravity 1.032 (1.005-1.025); Urobilinogen NEGATIVE mg/dL (0-1); WBC 0-2 /HPF (0-5)
[2020-12-13 23:51] VITALS: BP 100/63; PULSE 76
--- NOTE | 2020-12-14 09:17 | XRAY ---
Indication: Pain. Comparison: March 01, 2018. Portable chest remains clear. Heart not enlarged again with CABG surgery. Bony thorax intact. No new/acute findings.
== END 2020-12-13 23:47 | disposition home or self-care (01) ==
LOC: ED 21:05
DX: K29.70 Gastritis, unspecified, without bleeding (principal)
CPT/HCPCS: 36000; 36415; 71045; 80053; 81001; 82150; 83605; 83690; 83735; 83880; 84484; 85025; 87077; 87086; 87186; 93005; 93041; 99284; J3010